=== PATIENT | female | born 1985 | race Caucasian/White ===

== ENCOUNTER 2024-06-23 13:57 | Emergency (ER) | payer BC, SELFPAY ==
[2024-06-23 14:03] VITALS: BP 108/80
[2024-06-23 14:33] LABS: % Basophils 0.2 % (0-2); % Immature Granulocytes 0.3 % (0-0.5); % Lymphocytes 26.3 % (20.5-51.1); % Monocytes 5.1 % (1.7-9.3); % Neutrophils 67.1 % (42.2-75.2); Absolute Eosinophils 0.1 10^3/uL (0-0.7); Absolute Lymphocytes 1.6 10^3/uL (1.2-3.4); Absolute Monocytes 0.3 10^3/uL (0.1-0.6); Absolute Neutrophils 4.1 10^3/uL (1.4-6.5); Hematocrit 38.2 % (37.0-47.0); Hemoglobin 13.4 g/dL (12.0-16.0); Mean Corp Hgb Conc. 35.1 g/dL (33.0-37.0); Mean Corpuscular Volume 85.7 fL (81.0-99.0); Mean Platelet Volume 10.1 fL (7.4-10.4); Nucleated Red Blood Cells % 0 %; Platelet Count 204 10^3/uL (130-400); Red Blood Cell Count 4.46 10^6/uL (4.20-5.40); Red Cell Dist. Width 11.8 % (11.5-14.5); White Blood Cell Count 6.1 10^3/uL (4.8-10.8)
[2024-06-23 14:50] LABS: ALT (SGPT) 59 U/L (0-35); AST (SGOT) 144 U/L (14-36); Albumin 4.7 g/dl (3.5-5.0); Alkaline Phosphatase 53 U/L (38-126); Blood Urea Nitrogen 14 mg/dl (7-17); Calcium 8.7 mg/dl (8.4-10.2); Carbon Dioxide 27 mmol/L (22-30); Chloride 100 mmol/L (98-107); Glucose 125 mg/dl (70-99); Lipase 147 U/L (23-300); Potassium 3.4 mmol/L (3.5-5.1); Sodium 137 mmol/L (135-145); Total Bilirubin 0.9 mg/dl (0.2-1.3); Total Protein 7.1 g/dl (6.3-8.2); eGFR > 60.00
[2024-06-23 14:58] LABS: Troponin I < 0.012 ng/ml
--- NOTE | 2024-06-23 15:12 | ED.GENMED ---
ED Provider Triage
-
Patient seen by provider in Triage?: Seen in Triage
History of Present Illness
General
Chief Complaint: Abdominal Pain
Source: patient
Exam Limitations: none
Time Seen by Provider: 06/23/24 15:21
Nursing documentation reviewed up to this point in time: agreed with
History of Present Illness
History of Present Illness:
39-year-old female with no medical problems presents for epigastric/chest pain that started abruptly around 1 PM when she was at work. She had eaten about a 1 hour beforehand, not a spicy or greasy meal. She says the pain was so severe she felt
like she could not breathe. It lasted for about an hour and was persistent here she was for 10 minutes after arrival but then it completely resolved. She never vomited or had any syncope, fever or chills, diarrhea. Patient has never had anything
like this before. She is wondering if she could have had a panic attack. She says she was not stressed while she was at work. She has not been having postprandial pain. She drinks alcohol moderately
.
Past History
Past History
ED Past Medical History: None
ED Past Surgical History: None
Social History
Tobacco: Non-smoker
Alcohol: Occasional
Review of Systems
Review of Systems
Allergies reviewed?: Yes
All Other Systems: Not applicable
Phy Exam
Physical Exam
Physical Exam:
GENERAL: Alert , in no apparent distress, seems mildly anxious
EYE: pupils equal and reactive
NECK: Supple
ENT: o/p clr, mmm.
CARDIAC: Regular rate and rhythm .
LUNGS: Clear breath sounds bilaterally, no acute respiratory distress, no wheezes/rales/rhonchi
ABDOMEN: Soft, without focal tenderness, no r/g, no cvat, normal bowel sounds, negative Umanzor sign
NEUROLOGICAL: Alert and oriented, no focal neuro deficits
SKIN: Warm and dry, skin intact.
MUSCULOSKELETAL: No edema, well perfused. neg sylvie's sign
PSYCH: Normal and appropriate interaction.
Course
Orders/Labs/Results
Orders:
Orders
06/23/24 13:58
Electrocardiogram (*1) Urgent
Reason for Study: Abdominal Pain
EKG- Treatment ONCE
06/23/24 14:06
Test Result ONCE
06/23/24 14:12
Complete Blood Count/With Diff Urgent
Comprehensive Metabolic Panel Urgent
HCG, Serum Qualitative Screen Urgent
Comment: Notify provider if positive test present
Lipase Urgent
Troponin I Urgent
06/23/24 15:10
US Abdomen Complete/Upper Urgent
Comment:
Reason For Exam: upper abd pain, elevated lft
06/23/24 15:11
CR Chest - 2 Views Urgent
Comment:
Reason For Exam: chest pain
06/23/24 16:22
EKG- Treatment ONCE
06/23/24 16:27
Troponin I Urgent
06/23/24 16:30
Electrocardiogram (*1) Urgent
Reason for Study: Chest Pain
Abnormal Lab Results
06/23/24
14:12
Potassium 3.4 L mmol/L
(3.5-5.1)
Glucose 125 H mg/dl
(70-99)
AST 144 H U/L
(14-36)
ALT 59 H U/L
(0-35)
06/23/24 14:12
06/23/24 14:12
Vital Signs
Initial and Last Documented VS:
Initial Vital Signs
Temp Pulse Resp BP Pulse Ox
36.6 C 90 20 108/80 100
06/23/24 14:03 06/23/24 14:03 06/23/24 14:03 06/23/24 14:03 06/23/24 14:03
Last Documented Vital Signs
Temp Pulse Resp BP Pulse Ox
36.6 C 76 17 105/68 97
06/23/24 14:03 06/23/24 16:31 06/23/24 16:31 06/23/24 16:31 06/23/24 16:31
MDM/Problems Addressed
Differential Diagnosis Includes:
Cholelithiasis, cholecystitis, Pitstick gastritis, PE, ACS,
ED Attending Note
-
Portions of this chart may have been created with voice recognition software.� Occasional wrong word or��sound alike� substitutions may have occurred due to the inherent limitations of voice recognition software.
Discharge Plan
Departure
Referrals:
NONE,* [Family Provider] -
Interventions
Interventions:
*Risk Screen - Suicide Last Done: 06/23/24 14:03
*General Assessment Last Done: 06/23/24 14:03
*Neglect/Abuse Screening Last Done: 06/23/24 14:03
*ED COVID-19 Vaccine History Last Done: 06/23/24 16:31
ID-Rrtsfx-Rkbhkpbalx Assessment Last Done: 06/23/24 16:31
Discharge Date and Time
Print Language: VENEZUELAN
[2024-06-23 15:16] LABS: HCG, Serum Qualitative Screen Negative
[2024-06-23 16:31] VITALS: BP 105/68
[2024-06-23 16:59] LABS: Troponin I 0.012 ng/ml
== END 2024-06-23 17:50 | disposition home or self-care (01) ==
LOC: EMR 13:57
PROVIDERS: Physician Assistant; EMERGENCY PHYSICIAN Emergency Medicine
DX: R07.9 Chest pain, unspecified (principal); R10.13 Epigastric pain
CPT/HCPCS: 99285; 71046; 76700; 80053; 83690; 84484; 84703; 85025; 93005